=== PATIENT | female | born 1980 | race American Indian/Alaskan Native ===

== ENCOUNTER 2016-05-01 21:49 | Emergency (ER) | payer SELFPAY ==
[2016-05-02] MEDS ORDERED: NORCO 5/325 PO ONE (06:37)
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
[2016-05-02 06:49] LABS: Bilirubin,Urine NEG (Negative); Blood,Urine NEG (Negative); Ketones,Urine 20 mg/dL (Negative); Leukocyte Esterase,Urine NEG (Negative); Mucus,Urine 3+ /HPF; Nitrite,Urine NEG (Negative); Protein,Urine <15 mg/dL mg/dL (Negative)
[2016-05-02 06:55] LABS: Basophils % (Auto) 0.4 % (0.0-1.8); Eosinophils % (Auto) 1.6 % (0.0-4.3); Hematocrit 30.6 % (30.3-42.9); Hemoglobin 10.2 gm/dl (10.1-14.3); Mean Corpuscular HGB Conc 34 % (30-34); Mean Corpuscular Hemoglobin 32 pg (28-32); Mean Corpuscular Volume 96 fl (79-97); Platelet Count 187 K/mm3 (140-440); Red Blood Count 3.17 M/mm3 (3.65-5.03); Red Cell Distribution Width 13.6 % (13.2-15.2); White Blood Count 9.8 K/mm3 (4.5-11.0)
[2016-05-02 07:18] LABS: Alanine Aminotransferase 10 units/L (7-56); Albumin/Globulin Ratio 1.4 %; Alkaline Phosphatase 79 units/L (35-129); Anion Gap 19 mmol/L; Bilirubin,Total 0.4 mg/dL (0.1-1.2); Blood Urea Nitrogen 4 mg/dL (7-17); Calcium 8.5 mg/dL (8.4-10.2); Carbon Dioxide 20 mmol/L (22-30); Chloride 98.9 mmol/L (98-107); Glucose 91 mg/dL (65-100); Lipase 15 units/L (13-60); Potassium 3.3 mmol/L (3.6-5.0); Sodium 135 mmol/L (137-145); Total Protein 6.8 g/dL (6.3-8.2)
[2016-05-02 07:19] LABS: Bilirubin,Direct < 0.2 mg/dL (0-0.2)
[2016-05-02] MEDS ORDERED: K-DUR PO ONE (07:26)
[2016-05-02] MEDS ORDERED: TYLENOL PO ONE (07:26)
[2016-05-02 09:45] VITALS: BP 121/69
--- NOTE | 2016-05-02 10:27 | Ultrasound Report ---
OB ULTRASOUND: HISTORY: Abdominal pain during . TECHNIQUE: Transabdominal ultrasound with Doppler interrogation. Gestation: molina Position: breech Amniotic Fluid: WNL < 24 weeks, subjective Placenta: posterior Placental Grade: 0 Heart Rate: 134 BPM Cervical length: 3.8 cm (Normal > 3 cm) NEUROANATOMY VISUALIZED: Choroid Plexus Cisterna Magnum Cerebellum Lateral Ventricle ANATOMY VISUALIZED: Stomach Kidneys Bladder Diaphragm 4 Chamber Heart Heart 3 Vessel Cord Abd. Cord Insert SPINE VISUALIZED: Longitudinal BPD: 4.5 cm = 19 w 4 d HC: 16.9 cm = 19 w 4 d AC: 13.1 cm = 18 w 5 d FL: 3.1 cm = 19 w 5 d HC/AC Ratio: 1.29 Cephalic Index: 83.7 Estimated Weight: 278 grams LMP: 04-14-16 Clinical age = 2 w 4 d EDC: 01-19-17 US Gest. Age = 19 w 3 d EDC: 09-23-16
== END 2016-05-02 03:30 | disposition home or self-care (01) ==
LOC: ED 21:49
DX: O26.892 Other specified pregnancy related conditions, second trimester (principal); R10.30 Lower abdominal pain, unspecified; M54.5 Low back pain; F17.200 Nicotine dependence, unspecified, uncomplicated; Z3A.19 19 weeks gestation of pregnancy
CPT/HCPCS: 36415; 76805; 80048; 80074; 81001; 81025; 83690; 84702; 85025

== ENCOUNTER 2017-07-31 16:15 | Outpatient (CLI) | payer MEDICAID ==
[2017-07-31] MEDS ORDERED: CELESTONE SOLUSPAN IM ONE (18:00)
[2017-07-31] MEDS ORDERED: LACTATED RINGERS 1,000 ML IV ONE (18:00)
--- NOTE | 2017-08-02 15:10 | Vascular Lab Report ---
LOWER EXTREMITY VENOUS DUPLEX: REASON FOR EXAM: Deep venous thrombosis. COMMENTS ON THE RIGHT: All veins visualized are freely compressible without evidence of internal echogenicity. Flow is spontaneous and phasic throughout. COMMENTS ON THE LEFT: All veins visualized are freely compressible without evidence of internal echogenicity. Flow is spontaneous and phasic throughout. IMPRESSION: No evidence of acute or chronic deep venous thrombosis in either lower extremity.
[2017-08-07 21:13] VITALS: BP 125/86
== END 2017-07-31 18:39 | disposition home or self-care (01) ==
LOC: TRG 16:15
PROVIDERS: ATTEND Obstetrics & Gynecology
DX: O47.03 False labor before 37 completed weeks of gestation, third trimester (principal); O99.333 Smoking (tobacco) complicating pregnancy, third trimester; F17.210 Nicotine dependence, cigarettes, uncomplicated; Z3A.33 33 weeks gestation of pregnancy
CPT/HCPCS: 59025; 93970; 96372; J0702; J7120

== ENCOUNTER 2017-08-07 21:07 | Inpatient (IN) | payer MEDICAID ==
[2017-08-07] MEDS ORDERED: LACTATED RINGERS 500 ML IV ONE (21:28)
[2017-08-07] MEDS ORDERED: POLYCILLIN/NS 2 GM/100 ML 2 GM/100 ML BAG IV ONE (21:37)
[2017-08-07] MEDS ORDERED: PITOCin/NS 20 UNIT/1000ML DRIP 20,000 MILLIUNITS/1,000 ML BAG IV ONE (21:37)
[2017-08-07 21:44] LABS: Basophils # (Auto) 0.1 K/mm3 (0.0-0.1); Basophils % (Auto) 0.7 % (0.0-1.8); Eosinophils # (Auto) 0.1 K/mm3 (0.0-0.4); Eosinophils % (Auto) 0.6 % (0.0-4.3); Hematocrit 28.8 % (30.3-42.9); Hemoglobin 9.8 gm/dl (10.1-14.3); Lymphocytes % (Auto) 20.9 % (13.4-35.0); Mean Corpuscular HGB Conc 34 % (30-34); Mean Corpuscular Hemoglobin 33 pg (28-32); Mean Corpuscular Volume 95 fl (79-97); Monocytes # (Auto) 0.8 K/mm3 (0.0-0.8); Monocytes % (Auto) 7.9 % (0.0-7.3); Platelet Count 158 K/mm3 (140-440); Red Blood Count 3.03 M/mm3 (3.65-5.03); Red Cell Distribution Width 14.1 % (13.2-15.2)
[2017-08-07] MEDS ORDERED: LACTATED RINGERS 1,000 ML IV SCH (22:00)
[2017-08-07] MEDS ORDERED: POLYCILLIN/NS 2 GM/100 ML 2 GM/100 ML BAG IV SCH (22:00)
[2017-08-07] MEDS ORDERED: STADOL IV PRN (22:07)
[2017-08-07] MEDS ORDERED: MOTRIN PO ONE (23:44)
[2017-08-07] MEDS ORDERED: SODIUM CHLORIDE FLUSH SYRINGE 10 ML IV NR (23:45)
[2017-08-07] MEDS ORDERED: PERCOCET 5/325 PO PRN (23:57)
[2017-08-07] MEDS ORDERED: LANSINOH TP PRN (23:57)
[2017-08-07] MEDS ORDERED: PHENERGAN PR PRN (23:57)
[2017-08-07] MEDS ORDERED: ZOFRAN IV PRN (23:57)
[2017-08-07] MEDS ORDERED: DULCOLAX PR PRN (23:57)
[2017-08-07] MEDS ORDERED: TUCKS PAD TP PRN (23:57)
[2017-08-07] MEDS ORDERED: PHENERGAN PO PRN (23:57)
[2017-08-07] MEDS ORDERED: BENADRYL PO PRN (23:57)
[2017-08-07] MEDS ORDERED: TYLENOL PO PRN (23:57)
[2017-08-07] MEDS ORDERED: MILK OF MAGNESIA PO PRN (23:57)
--- NOTE | 2017-08-08 00:04 | History and Physical Report ---
History of Present Illness Date of examination: 08/07/17 Date of admission: 08/07/17 21:07 Chief complaint: 34 weeks gestation with fluid leakage and contractions. History of present illness: Patient is a 36 year old , LMP unknown, EDC 09/13/17 at 34 weeks and 2 days gestation who [id number] to triage complaining of having contractions and fluid leakage since about 7 PM tonight. She denied any bleeding. Exam: cervix: 5 cm/90%/-2. tracing was CAT 1. 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 ) Family/Genetic History: none Social history: smoking - Obstetrical History Expected Date of Delivery: 09/13/17 Actual Gestation: 34 Week(s) 6 Day(s) : 14 Para: 8 Hx # Term Pregnancies: 6 Number of Pregnancies: 2 Spontaneous Abortions: 4 Number of Living Children: 7 Medications and Allergies Allergies Allergy/AdvReac Type Severity Reaction Status Date / Time No Known Allergies Allergy Verified 11/01/13 18:30 Home Medications Medication Instructions Recorded Confirmed Last Taken Type No Known Home Medications [No 08/13/16 08/13/16 Unknown History Reported Home Medications] Active Meds: Active Medications Butorphanol Tartrate (Stadol) 2 mg IV Q2H PRN PRN Reason: Labor Pain Last Admin: 08/07/17 22:15 Dose: 2 mg Lactated Ringer's (Lactated Ringers) 1,000 mls @ 125 mls/hr IV DIRECT VIVIANE Ampicillin Sodium (Polycillin/Ns 2 Gm/100 Ml) 2 gm in 100 mls @ 100 mls/hr IV ONCE VIVIANE; Protocol - Vital Signs Vital signs: Vital Signs Temp Pulse Resp BP Pulse Ox 98.8 F 93 H 18 125/86 100 08/07/17 21:26 08/07/17 21:26 08/07/17 21:26 08/07/17 21:26 08/07/17 21:26 Temp Pulse Resp BP Pulse Ox 98.3 F 83 20 129/80 100 08/07/17 23:15 08/07/17 23:52 08/07/17 23:15 08/07/17 23:46 08/07/17 23:52 - Physical Exam Cardiovascular: Normal S1, Normal S2 Lungs: Positive: Clear to auscultation Vulva: both: normal Uterus: Positive: enlarged Deep Tendon Reflex Grade: Normal +2 - Obstetrical FHR: category 1 Uterine Contraction Monitor Mode: External Cervical Dilatation: 5 Cervical Effacement Percentage: 90 station: -2 Uterine Contraction Pattern: Irregular Uterine Contraction Intensity: Strong/Firm Results Result Diagrams: 08/07/17 21:27 Abnormal lab results 08/07/17 Range/Units 21:27 RBC 3.03 L (3.65-5.03) M/mm3 Hgb 9.8 L (10.1-14.3) gm/dl Hct 28.8 L (30.3-42.9) % MCH 33 H (28-32) pg [place] % (Auto) 7.9 H (0.0-7.3) % All other labs normal. Assessment and Plan - Patient Problems (1) 34 weeks gestation of Current Visit: Yes Status: Acute (2) premature rupture of membranes (PPROM) delivered, current hospitalization Current Visit: Yes Status: Acute Plan to address problem: Admit to labor floor. IV fluid, routine admitting labs. monitoring. IV antibiotics for GBS prophylaxis. NICU notified. Expect . (3) labor Current Visit: Yes Status: Acute (4) Advanced maternal age (AMA) in Current Visit: Yes Status: Acute (5) Anemia Current Visit: Yes Status: Acute Qualifiers: Anemia type: iron deficiency
--- NOTE | 2017-08-08 00:11 | Procedure Note ---
OB Delivery Note - Delivery Date of Delivery: 08/07/17 Surgeon: HEMA ZHANG Estimated blood loss: 100cc - Vaginal Delivery presentation: vertex Delivery position: OA Intrapartum events: foul smelling fluid, other(please specify) (PPROM) Delivery induction: none Delivery monitor: external FHT Route of delivery: Delivery placenta: spontaneous Delivery cord: 3 umbilical vessels Episiotomy: none Delivery laceration: none Anesthesia: none Delivery comments: Patient became fully dilated. She delivered via a live female infant from an KATRINA position at 10:52 PM with Apgars of 8 at 1 min and 9 at 5 mins. Bulb suction of mouth and nose was performed, cord clamped and cut, cord blood collected. Peds were present. The amniotic fluid was foul-smelling. The placenta was delivered manually and it was complete with a 3-vessel cord at 10: 56 PM. No laceration was sustained, no episiotomy was given. EBL was about 150 cc. Patient tolerated the procedure well. She remains stable.
[2017-08-08] MEDS: MOTRIN PO SCH ×4 (00:45→23:40)
[2017-08-08] MEDS ORDERED: PITOCin/NS 20 UNIT/1000ML DRIP 20 UNITS/1,000 ML BAG IV SCH (03:00)
--- NOTE | 2017-08-08 10:20 | Progress Note ---
Assessment and Plan A: PPD#1 s/p in NICU (34 wks) Stable P: Routine PP care Discharge home 08/09 Subjective - Subjective Date of service: 08/08/17 Principal diagnosis: S/P Interval history: See H&P and delivery note Patient reports: appetite normal, voiding normally, pain well controlled, ambulating normally : doing well, bottle feeding Objective - Vital Signs Latest vital signs: Vital Signs Temp Pulse Resp BP BP Pulse Ox 08/08/17 08:25 98.4 F 78 18 118/81 100 08/08/17 05:17 98.2 F 79 20 119/70 97 08/08/17 00:36 98.3 F 74 20 129/87 96 08/07/17 23:58 98.6 F 80 20 129/80 100 08/07/17 23:52 83 100 08/07/17 23:47 76 99 08/07/17 23:46 81 129/80 08/07/17 23:42 74 99 08/07/17 23:41 76 129/81 08/07/17 23:37 94 H 98 08/07/17 23:32 85 99 08/07/17 23:31 77 132/85 08/07/17 23:27 83 100 08/07/17 23:22 76 100 08/07/17 23:17 87 98 08/07/17 23:16 88 142/95 92 08/07/17 23:15 98.3 F 77 20 142/95 08/07/17 23:12 81 98 08/07/17 23:07 89 99 08/07/17 23:02 88 99 08/07/17 23:01 86 129/88 08/07/17 22:57 92 H 97 08/07/17 22:52 101 H 99 08/07/17 22:47 102 H 97 08/07/17 21:26 98.8 F 93 H 18 125/86 100 Intake and Output 08/07/17 08/08/17 08/08/17 23:59 07:59 15:59 Intake Total 120 Output Total 400 Balance -280 Intake: Oral 120 Output: Urine 400 Void 400 Other: Total, Intake Amount 120 Total, Output Amount 400 # Voids Void 1 Weight 79.379 kg Estimated Blood Loss 150 - Exam Breasts: Present: normal Cardiovascular: Present: Regular rate, Normal S1, Normal S2 Lungs: Present: Clear to auscultation, Normal air movement Abdomen: Present: normal appearance, soft, normal bowel sounds. Absent: distention Vulva: both: normal Uterus: Present: firm, fundal height at umbilicus Extremities: Present: normal Deep Tendon Reflex Grade: Normal +2 - Labs Labs: Abnormal lab results 08/07/17 Range/Units 21:27 RBC 3.03 L (3.65-5.03) M/mm3 Hgb 9.8 L (10.1-14.3) gm/dl Hct 28.8 L (30.3-42.9) % MCH 33 H (28-32) pg [place] % (Auto) 7.9 H (0.0-7.3) %
--- NOTE | 2017-08-08 10:22 | Discharge Summary ---
Providers - Providers Date of Admission: 08/07/17 21:07 Date of discharge: 08/09/17 Attending physician: HEMA ZAHNG MD Primary care physician: HEMA ZHANG MD Hospitalization Reason for admission: active labor, labor (34 weeks) Delivery: Procedure details: See delivery note Episiotomy: none Laceration: none Other procedures: none complications: none Discharge diagnosis: delivery baby: female Condition at discharge: Good Disposition: DC-01 TO HOME OR SELFCARE Plan - Provider Discharge Summary Activity: routine, no sex for 6 weeks, no heavy lifting 4 weeks, no strenuous exercise Diet: routine Instructions: routine Additional instructions: [] Smoking cessation referral if applicable(refer to patient education folder for contact #) [] Refer to [facility] Booklet Call your doctor immediately for: * Fever > 100.5 * Heavy vaginal bleeding ( >1 pad per hour) * Severe persistent headache * Shortness of breath * Reddened, hot, painful area to leg or breast * Drainage or odor from incision. * Keep incision clean and dry at all times and follow doctor's instructions regarding bathing/showering - Follow up plan Follow up: HEMA ZHANG MD [Primary Care Provider] - 6 Weeks
[2017-08-08 12:38] LABS: Hematocrit 27.2 % (30.3-42.9); Hemoglobin 9.5 gm/dl (10.1-14.3)
[2017-08-09] MEDS: MOTRIN PO SCH (03:18)
[2017-08-09 09:00] VITALS: BP 119/80
== END 2017-08-09 11:30 | disposition home or self-care (01) | DRG 775 ==
LOC: LD 21:07 → OB 08-08 00:34
PROVIDERS: ADMIT Obstetrics & Gynecology; ATTEND Obstetrics & Gynecology
PROC: 10E0XZZ Delivery of Products of Conception, External Approach (ICD-10-PCS; principal; 2017-08-07)
DX: O60.14X0 Preterm labor third trimester with preterm delivery third trimester, not applicable or unspecified (principal); O99.334 Smoking (tobacco) complicating childbirth; F17.200 Nicotine dependence, unspecified, uncomplicated; O99.02 Anemia complicating childbirth; D64.9 Anemia, unspecified; Z3A.34 34 weeks gestation of pregnancy; Z37.0 Single live birth; Z90.49 Acquired absence of other specified parts of digestive tract; Z90.721 Acquired absence of ovaries, unilateral
CPT/HCPCS: 36415; 85014; 85018; 85025; 86592; 86850; 86900; 86901; 88307; 99211; G0463; J0290; J0595; J2590; J7120

== ENCOUNTER 2018-06-07 17:54 | Emergency (ER) | payer MEDICAID, OTHER ==
--- NOTE | 2018-06-07 18:19 | Emergency Department Report ---
Blank Doc - Documentation Documentation: This is a 37-year-old female that presents with URI symptoms. This initial assessment/diagnostic orders/clinical plan/treatment(s) is/are subject to change based on patient's health status, clinical progression and re- assessment by fellow clinical providers in the ED. Further treatment and workup at subsequent clinical providers discretion. Patient/guardians urged not to elope from the ED as their condition may be serious if not clinically assessed and managed. Initial orders include: 1- Patient sent to [facility] for further evaluation and treatment 2- cxr
[2018-06-07 18:21] VITALS: BP 151/86
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
== END 2018-06-07 20:50 | disposition home or self-care (01) ==
LOC: ED 17:54
DX: J02.9 Acute pharyngitis, unspecified (principal); R05 Cough; R09.81 Nasal congestion; J34.89 Other specified disorders of nose and nasal sinuses; F17.200 Nicotine dependence, unspecified, uncomplicated
CPT/HCPCS: 99282

== ENCOUNTER 2019-05-24 09:51 | Emergency (ER) | payer SELFPAY ==
[2019-05-24 10:16] VITALS: BP 115/67
[2019-05-24] MEDS ORDERED: ONDANSETRON 4 MG ODT TAB PO ONE (11:20)
[2019-05-24] MEDS ORDERED: FAMOTIDINE 20 MG TAB PO ONE (11:20)
[2019-05-24 12:58] LABS: HCG Qualitative,Urine Positive (Negative)
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
== END 2019-05-24 13:35 | disposition home or self-care (01) ==
LOC: ED 09:51
DX: O21.9 Vomiting of pregnancy, unspecified (principal); O26.891 Other specified pregnancy related conditions, first trimester; R10.84 Generalized abdominal pain; F17.200 Nicotine dependence, unspecified, uncomplicated; Z79.899 Other long term (current) drug therapy; Z3A.00 Weeks of gestation of pregnancy not specified
CPT/HCPCS: 81025; 99283; Q0162

== ENCOUNTER 2019-06-05 21:36 | Emergency (ER) | payer SELFPAY ==
[2019-06-05 22:35] VITALS: BP 106/70
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
[2019-06-06 02:04] LABS: Basophils # (Auto) 0.1 K/mm3 (0.0-0.1); Basophils % (Auto) 0.9 % (0.0-1.8); Eosinophils # (Auto) 0.1 K/mm3 (0.0-0.4); Eosinophils % (Auto) 1.6 % (0.0-4.3); Hematocrit 32.3 % (30.3-42.9); Hemoglobin 10.7 gm/dl (10.1-14.3); Lymphocytes # (Auto) 2.6 K/mm3 (1.2-5.4); Lymphocytes % (Auto) 39.7 % (13.4-35.0); Mean Corpuscular HGB Conc 33 % (30-34); Mean Corpuscular Volume 94 fl (79-97); Monocytes # (Auto) 0.4 K/mm3 (0.0-0.8); Monocytes % (Auto) 6.2 % (0.0-7.3); Platelet Count 166 K/mm3 (140-440); Red Blood Count 3.45 M/mm3 (3.65-5.03); Red Cell Distribution Width 17.1 % (13.2-15.2)
[2019-06-06 02:48] LABS: BUN/Creatinine Ratio 15; Blood Urea Nitrogen 9 mg/dL (7-17); Calcium 9.1 mg/dL (8.4-10.2); Hemolysis Index 2
--- NOTE | 2019-06-06 04:10 | Ultrasound Report ---
ULTRASOUND OBSTETRIC INDICATION / CLINICAL INFORMATION: preg, bleeding, abd pain, hx of ectopic. TECHNIQUE: Transabdominal. COMPARISON: None available. FINDINGS: EMBRYO/FETUS: No significant abnormality. - [place]-Rump Length = 5.2 cm = 11 weeks, 6 day(s). Small subchorionic bleed is present - Heart Rate, beats per minute (if present) = 155 ADNEXA: Right ovary cannot be identified. Left ovary appears normal. FREE FLUID: None. ADDITIONAL FINDINGS: None. IMPRESSION: 1. Single, living intrauterine with estimated sonographic age of 11 weeks, 6 day(s). 2. Small subchorionic bleed Signer Name: Helio Jiang MD Signed: 06/06/2019 4:06 AM Workstation Name: [id number]
== END 2019-06-06 04:50 | disposition home or self-care (01) ==
LOC: ED 21:36
DX: O20.0 Threatened abortion (principal); Z3A.12 12 weeks gestation of pregnancy
CPT/HCPCS: 36415; 76801; 80048; 84702; 85025; 86900; 86901; 99284

== ENCOUNTER 2019-08-15 12:42 | Emergency (ER) | payer MEDICAID ==
[2019-08-15 13:06] VITALS: BP 127/78
== END 2019-08-15 14:25 | disposition left against medical advice (07) ==
LOC: ED 12:42
DX: K64.9 Unspecified hemorrhoids (principal); Z53.21 Procedure and treatment not carried out due to patient leaving prior to being seen by health care provider

== ENCOUNTER 2019-11-13 22:36 | Emergency (ER) | payer MEDICAID ==
[2019-11-13 23:10] VITALS: BP 110/72
[2019-11-13] MEDS ORDERED: LACTATED RINGERS 1,000 ML IV ONE (23:14)
[2019-11-13] MEDS ORDERED: HYDROCORTISONE 2.5% RECT CREAM 28.35 GM PR ONE (23:21)
[2019-11-13] MEDS ORDERED: DIPHENOXYLATE/ATROPINE TAB PO ONE (23:24)
[2019-11-14] MEDS ORDERED: ACETAMINOPHEN 325 MG TAB ONE (01:43)
[2019-11-14] MEDS ORDERED: ACETAMINOPHEN 325 MG TAB PO ONE (01:45)
--- NOTE | 2019-11-14 01:48 | Ultrasound Report ---
Examination: Ultrasound Obstetrical Limited, 11/14/2019 INDICATION: Evaluate for placental abruption. COMPARISON: Obstetrical ultrasound, 06/06/2019 FINDINGS: There is a single living intrauterine with the head in the cephalic position. The placenta is anterior and grade 1. No sonographic abnormality of the placenta is identified. heart rate equals 148 bpm. IMPRESSION: Limited obstetrical ultrasound with details as above. Signer Name: Gavi Cotton MD Signed: 11/14/2019 1:43 AM Workstation Name: [id number]
== END 2019-11-14 01:55 | disposition left against medical advice (07) ==
LOC: TRG 22:36 → ED 22:36 → TRG 22:37 → APU 11-14 00:14 → TRG 11-14 01:21 → APU 11-14 01:21 → ED 11-14 01:37
DX: O26.893 Other specified pregnancy related conditions, third trimester (principal); R19.7 Diarrhea, unspecified; Z3A.32 32 weeks gestation of pregnancy; Z53.21 Procedure and treatment not carried out due to patient leaving prior to being seen by health care provider
CPT/HCPCS: 59025; 76815; 96360; J7120

== ENCOUNTER 2019-11-24 00:06 | Outpatient (CLI) | payer MEDICAID ==
[2019-11-24] MEDS ORDERED: BETAMET ACET/BETAMET NA PH 6 MG/ML INJ 5 ML MDV IM ONE (00:47)
== END 2019-11-24 00:46 | disposition home or self-care (01) ==
LOC: TRG 00:06 → APU 00:07 → TRG 00:46
PROVIDERS: ATTEND Obstetrics & Gynecology
DX: O47.03 False labor before 37 completed weeks of gestation, third trimester (principal); O42.913 Preterm premature rupture of membranes, unspecified as to length of time between rupture and onset of labor, third trimester; O99.013 Anemia complicating pregnancy, third trimester; O09.523 Supervision of elderly multigravida, third trimester; Z3A.36 36 weeks gestation of pregnancy
CPT/HCPCS: 96372; J0702

== ENCOUNTER 2019-11-29 11:15 | Inpatient (IN) | payer MEDICAID ==
[2019-11-29] MEDS ORDERED: LACTATED RINGERS 1,000 ML ONE (11:45)
[2019-11-29] MEDS ORDERED: ONDANSETRON 4 MG/2 ML INJ IV PRN (12:05)
[2019-11-29] MEDS ORDERED: TERBUTALINE 1 MG/1 ML INJ SUB-Q PRN (12:05)
[2019-11-29] MEDS ORDERED: ePHEDrine SULFATE 50 MG/1 ML INJ IV PRN ×2 (12:05→12:07)
[2019-11-29] MEDS ORDERED: MINERAL OIL 30 ML ORAL LIQD PO PRN (12:05)
[2019-11-29] MEDS ORDERED: ACETAMINOPHEN 325 MG TAB PO PRN (12:05)
[2019-11-29] MEDS ORDERED: LIDOCAINE (2%) 20 MG/1 ML VIAL 20 ML MDV INFILTRATI ONE (12:05)
[2019-11-29] MEDS ORDERED: NALOXONE 2 MG/2 ML INJ IV PRN (12:07)
--- NOTE | 2019-11-29 12:09 | Anesthesia Consultation ---
Anesthesia Consult and Med Hx Date of service: 11/29/19 - Airway Anesthetic Teeth Evaluation: Good ROM Head & Neck: Adequate Mental/Hyoid Distance: Adequate Mallampati Class: Class II Intubation Access Assessment: Probably Good - Pulmonary Exam CTA: Yes - Cardiac Exam Cardiac Exam: RRR - Pre-Operative Health Status ASA Pre-Surgery Classification: ASA2 Proposed Anesthetic Plan: Epidural - Pulmonary Hx Smoking: Yes (4-5 cigs a day x 17 years) Hx Asthma: No COPD: No Hx Pneumonia: No - Cardiovascular System Hx Hypertension: No - Central Nervous System Hx Seizures: No Hx Psychiatric Problems: No - Endocrine Hx Renal Disease: No Hx End Stage Renal Disease: No Hx Hypothyroidism: No Hx Hyperthyroidism: No - Hematic Hx Anemia: Yes Hx Sickle Cell Disease: No - Other Systems Hx Alcohol Use: Yes Hx Substance Use: Yes (Marakarina Last use 06/25) Hx Cancer: No
[2019-11-29] MEDS ORDERED: DEXMEDETOMIDINE 200 MCG/2 ML VIAL IV ONE (12:14)
[2019-11-29 12:22] LABS: Hematocrit 28.7 % (30.3-42.9); Hemoglobin 9.7 gm/dl (10.1-14.3); Mean Corpuscular HGB Conc 34 % (30-34); Mean Corpuscular Volume 96 fl (79-97); Platelet Count 187 K/mm3 (140-440); Red Blood Count 2.98 M/mm3 (3.65-5.03); Red Cell Distribution Width 14.5 % (13.2-15.2)
--- NOTE | 2019-11-29 12:40 | Progress Note ---
Labor Epidural - Labor Epidural Start Time: 12:30 Stop Time: 12:35 Performed by:: PARIS FRANCO Procedure: Patient is requesting epidural for labor pain. H&P, and labs reviewed. Procedure explained, questions answered, consent obtained. Patient in sitting position with blood pressure cuff and pulse ox on and working. Timeout performed immediately before start of procedure. Sterile betadine prep/drape. 3 mL 1% lidocaine skin wheal at L[3]-L[4]. 18-gauge Touhy epidural needle advanced to paresthesia down left leg. Patient wishes to abort procedure, tuohy removed, paresthesia resolving. Day SRNA
[2019-11-29] MEDS ORDERED: OXYTOCIN 20 UNIT/1000ML DRIP 20 UNITS/1,000 ML BAG IV SCH (13:00)
[2019-11-29] MEDS ORDERED: AMPICILLIN/NS 2 GM/100 ML 2 GM/100 ML BAG IV ONE (13:00)
[2019-11-29] MEDS ORDERED: fentaNYL-BUPIV 2 MCG/ML-0.125% 200 MCG/100 ML BAG EPIDURAL SCH (13:00)
--- NOTE | 2019-11-29 13:01 | History and Physical Report ---
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 Her has been complicated by AMA, hx of PTD x 2, anemia, genital herpes, late entry to [facility], smoker, Trichomonas and Vit D deficiency. She presents to [facility] with reports of painful ctxs and was found to be 5 cms dilated. She denies VB or LOF. Labs: O+, antibody negative; rubella immune; VDRL negative; HBsAg negative; HIV ne gative; GC/Chlamydia negative;Trich positive (SILVA negative 08/22/19); CF negative; 1 hr gtt - 78; GBS unknown. 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 Family/Genetic History: hypertension, cancer (stomach) - Obstetrical History Expected Date of Delivery: 12/20/19 Actual Gestation: 37 Week(s) 0 Day(s) : 13 Para: 8 Hx # Term Pregnancies: 6 Number of Pregnancies: 2 Spontaneous Abortions: 4 Induced : 0 Number of Living Children: 8 Medications and Allergies Allergies Allergy/AdvReac Type Severity Reaction Status Date / Time No Known Allergies Allergy Verified 08/15/19 13:02 Home Medications Medication Instructions Recorded Confirmed Last Taken Type Albuterol Mdi (or & Nicu Only) 1 puff IH Q4-6H PRN #1 inha 06/07/18 Unknown Rx [ProAir HFA Inhaler] Azithromycin [Zithromax] 500 mg PO QDAY #5 tablet 06/07/18 Unknown Rx guaiFENesin/CODEINE [Robitussin AC] 5 ml PO Q6H PRN #120 ml 06/07/18 Unknown Rx predniSONE [Deltasone] 20 mg PO QDAY #5 tab 06/07/18 Unknown Rx Dicyclomine [Bentyl] 20 mg PO QID #10 tablet 05/24/19 Unknown Rx Vit-Fe Fumar-FA [ 1 tab PO QDAY #30 tablet 06/06/19 Unknown Rx Vitamin] Active Meds: Active Medications Acetaminophen (Tylenol) 650 mg PO Q4H PRN PRN Reason: Pain, Mild (1-3) Butorphanol Tartrate (Stadol) 2 mg IV Q2H PRN PRN Reason: Pain , Severe (7-10) Ephedrine Sulfate (Ephedrine Sulfate) 10 mg IV Q2M PRN PRN Reason: Hypotension Ephedrine Sulfate (Ephedrine Sulfate) 10 mg IV Q2M PRN PRN Reason: Hypotension Fentanyl (Sublimaze) 100 mcg IV Q2H PRN PRN Reason: Pain,Severe (7-10) LABOR PAIN Fentanyl/Bupivacaine/Sodium Chlor (Fentanyl-Bupiv 2 Mcg/Ml-0.125%) 200 mcg in 100 mls @ 12 mls/hr EPIDURAL TITR VIVIANE; Protocol Lactated Ringer's (Lactated Ringers) 1,000 mls @ 125 mls/hr IV DIRECT VIVIANE Oxytocin/Sodium Chloride (Pitocin/Ns 20 Unit/1000ml Drip) 20 units in 1,000 mls @ 125 mls/hr IV DIRECT VIVIANE Ampicillin Sodium (Ampicillin/Ns 2 Gm/100 Ml) 2 gm in 100 mls @ 100 mls/hr IV ONCE ONE; Protocol Stop: 11/29/19 13:04 Ampicillin Sodium (Ampicillin/Ns 1 Gm/50 Ml) 1 gm in 50 mls @ 100 mls/hr IV Q4HR VIVIANE; Protocol Lidocaine (Xylocaine 2%) 20 ml INFILTRATI ONCE ONE Stop: 11/29/19 12:06 Mineral Oil (Mineral Oil) 30 ml PO QHS PRN PRN Reason: Constipation Naloxone HCl (Naloxone) 0.2 mg IV Q5M PRN PRN Reason: Respiratory sedation Ondansetron HCl (Zofran) 4 mg IV Q8H PRN PRN Reason: Nausea And Vomiting Terbutaline Sulfate (Brethine) 0.25 mg SUB-Q ONCE PRN PRN Reason: Hyperstimulation/Hypertonicity Review of Systems All systems: negative Genitourinary: contractions - Vital Signs Vital signs: Vital Signs Pulse BP 82 135/74 11/29/19 11:44 11/29/19 11:44 Temp Pulse Resp BP Pulse Ox 97.5 F L 79 20 129/72 99 11/29/19 11:48 11/29/19 12:50 11/29/19 11:48 11/29/19 12:35 11/29/19 12:50 - Physical Exam Breasts: Positive: normal Cardiovascular: Regular rate Lungs: Positive: Normal air movement Abdomen: Positive: other (gravid) Uterus: Positive: enlarged (S=D) - Obstetrical FHR: category 1 Uterine Contraction Monitor Mode: External Cervical Dilatation: 5 (per RN) Cervical Effacement Percentage: 80 station: -2 Uterine Contraction Frequency (min): 5-10 Uterine Contraction Pattern: Irregular Uterine Tone Measurement Phase: Resting Uterine Contraction Intensity: Moderate Results Result Diagrams: 11/29/19 12:06 Abnormal lab results 11/29/19 Range/Units 12:06 RBC 2.98 L (3.65-5.03) M/mm3 Hgb 9.7 L (10.1-14.3) gm/dl Hct 28.7 L (30.3-42.9) % MCH 33 H (28-32) pg All other labs normal. Assessment and Plan - Patient Problems (1) 37 weeks gestation of Current Visit: Yes Status: Acute Plan to address problem: Admit to L & D Epidural as desired Anticipate (2) Advanced maternal age (AMA) in Current Visit: No Status: Acute (3) Anemia Current Visit: No Status: Acute Qualifiers: Anemia type: iron deficiency Plan to address problem: Continue iron supplementation PP (4) HSV-2 seropositive Current Visit: Yes Status: Acute (5) Smoker Current Visit: Yes Status: Acute
[2019-11-29] MEDS: BUTORPHANOL 2 MG/1 ML INJ IV PRN (13:02)
[2019-11-29] MEDS: fentaNYL 100 MCG/2 ML INJ IV PRN (16:36)
[2019-11-29] MEDS: AMPICILLIN/NS 1 GM/50 ML 1 GM/50 ML BAG IV SCH ×2 (18:06→21:48)
[2019-11-29] MEDS ORDERED: TERBUTALINE 1 MG/1 ML INJ SUB-Q ONE (21:28)
--- NOTE | 2019-11-29 21:36 | Event Note ---
Date: 11/29/19 SVE 50/-2/posterior. Small pink scar noted on vulva; pt. states most probably from previous delivery. No lesions noted on careful exam with bright light upon admission. Pt. has a history of +HSV 2 serology. She states she was supposed to be taking Valtrex suppression but has not been compliant with her medication and has missed most of the doses over the past 2 weeks. Valtrex ordered for suppression. Advised patient re: importance of taking this for HSV suppression. Will observe patient overnight to rule out labor. Contractions have been i rregular and mild. Patient is grand multip.
[2019-11-29] MEDS: valACYclovir 500 MG TAB PO SCH (22:50)
[2019-11-30] MEDS: LACTATED RINGERS 1,000 ML IV SCH ×2 (02:00→18:50)
[2019-11-30] MEDS: AMPICILLIN/NS 1 GM/50 ML 1 GM/50 ML BAG IV SCH ×6 (02:00→21:13)
[2019-11-30 04:05] LABS: Alanine Aminotransferase 10 units/L (7-56); Albumin 2.8 g/dL (3.9-5); Blood Urea Nitrogen 5 mg/dL (7-17); Calcium 7.9 mg/dL (8.4-10.2); Hemolysis Index 1; Uric Acid 5.8 mg/dL (3.5-7.6)
[2019-11-30 04:15] LABS: BUN/Creatinine Ratio 8
[2019-11-30] MEDS: fentaNYL 100 MCG/2 ML INJ IV PRN (04:54)
[2019-11-30] MEDS: valACYclovir 500 MG TAB PO SCH ×2 (09:15→21:12)
--- NOTE | 2019-11-30 09:16 | Progress Note ---
Assessment and Plan A: at 37 weeks, 1 day gestation. Early labor. HSV 2 positive serology (no lesions or prodromal symptoms). GBS unknown. Grand multipara. P: Patient to walk; recheck cervix after ambulation. Continue HSV suppression with Valtrex. GBS prophylaxis. Subjective - Subjective Date of service: 11/30/19 Principal diagnosis: at 37 1/7 weeks gestation Interval history: Patient has been receiving Valtrex for HSV suppression. Patient denies prodromal symptoms. No lesion noted on careful exam. Patient reports contractions are becoming stronger and more regular. Patient reports: movement normal, contractions, no loss of fluid, no vaginal bleeding Objective - Vital Signs Vital Signs: Vital Signs - 12hr 11/29/19 11/30/19 11/30/19 21:50 04:57 05:57 Pulse Rate 73 81 85 Blood Pressure 117/74 126/74 132/63 11/30/19 11/30/19 11/30/19 06:57 07:57 08:57 Pulse Rate 78 73 77 Blood Pressure 125/68 120/67 118/79 - Exam Abdomen: Present: normal appearance, soft. Absent: distention, tenderness, guarding, rigidity Uterus: Present: fundal height above umbilicus. Absent: tenderness FHR: category 2 Uterine Contraction Monitor Mode: External Cervical Dilatation: 5 Cervical Effacement Percentage: 50 station: -2 Uterine Contraction Pattern: Irregular Uterine Contraction Intensity: Mild Extremities: normal - Labs Labs: Abnormal Labs 11/29/19 11/30/19 12:06 02:53 RBC 2.98 L Hgb 9.7 L Hct 28.7 L MCH 33 H Sodium 135 L Potassium 3.4 L Carbon Dioxide 20 L BUN 5 L Calcium 7.9 L Alkaline Phosphatase 230 H Lactate Dehydrogenase 191 H Total Protein 4.8 L Albumin 2.8 L Laboratory Results - last 24 hr 11/29/19 11/29/19 11/30/19 12:05 12:06 02:53 WBC 8.5 RBC 2.98 L Hgb 9.7 L Hct 28.7 L MCV 96 MCH 33 H MCHC 34 RDW 14.5 Plt Count 187 Sodium 135 L Potassium 3.4 L Chloride 102.4 Carbon Dioxide 20 L Anion Gap 16 BUN 5 L Creatinine 0.6 Estimated GFR > 60 BUN/Creatinine Ratio 8 Glucose 77 Uric Acid 5.8 Calcium 7.9 L Total Bilirubin 0.40 AST 15 ALT 10 Alkaline Phosphatase 230 H Lactate Dehydrogenase 191 H Total Protein 4.8 L Albumin 2.8 L Albumin/Globulin Ratio 1.5 Blood Type O POSITIVE Antibody Screen Negative
[2019-11-30] MEDS ORDERED: WITCH HAZEL/ GLYCERIN PAD TP PRN (13:52)
[2019-11-30 14:00] LABS: Bilirubin,Urine NEG (Negative); Blood,Urine SM (Negative); Color,Urine Yellow (Yellow); Hyaline Casts,Urine 6 /LPF; Mucus,Urine FEW /HPF; Protein,Urine <15 mg/dL mg/dL (Negative)
[2019-11-30] MEDS: BUTORPHANOL 2 MG/1 ML INJ IV PRN (14:05)
[2019-11-30 14:07] LABS: Amphetamine Screen,Urine PRESUMPTIVE NEGATIVE; Benzodiazepines Screen,Urine PRESUMPTIVE NEGATIVE; Cannabinoid Screen,Urine PRESUMPTIVE POSITIVE; Cocaine Screen,Urine PRESUMPTIVE NEGATIVE; Methadone Screen,Urine PRESUMPTIVE NEGATIVE; Opiate Screen,Urine PRESUMPTIVE NEGATIVE
[2019-11-30] MEDS ORDERED: OXYTOCIN DRIP 30 UNITS/500 ML BAG IV SCH (21:00)
--- NOTE | 2019-11-30 21:06 | Event Note ---
Date: 11/30/19 SVE /-1/BBOW. Will augment labor.
[2019-12-01] MEDS ORDERED: DEXMEDETOMIDINE 200 MCG/2 ML VIAL IV ONE (01:02)
[2019-12-01] MEDS ORDERED: miSOPROStol 200 MCG TAB PR ONE (01:05)
[2019-12-01] MEDS ORDERED: miSOPROStol 200 MCG TAB ONE (01:06)
[2019-12-01] MEDS: fentaNYL 100 MCG/2 ML INJ IV PRN (01:18)
[2019-12-01] MEDS ORDERED: diphenhydrAMINE 25 MG CAP PO PRN (01:22)
[2019-12-01] MEDS ORDERED: LANOLIN/ZINC/DIMETHICONE (LANSINOH) 7 GM TP PRN (01:22)
[2019-12-01] MEDS ORDERED: MAGNESIUM HYDROXIDE (MOM) ORAL LIQD UDC PO PRN (01:22)
[2019-12-01] MEDS ORDERED: WITCH HAZEL/ GLYCERIN PAD TP PRN (01:22)
--- NOTE | 2019-12-01 01:33 | Procedure Note ---
OB Delivery Note - Delivery Date of Delivery: 12/01/19 Surgeon: ELTON BERNARDO Estimated blood loss: 500cc - Vaginal Delivery presentation: vertex Delivery position: OA Intrapartum events: hemorrhage Delivery induction: none Delivery augmentation: rupture of membranes, pitocin Delivery monitor: external uterine, internal FHT Route of delivery: Delivery placenta: spontaneous Delivery cord: nuchal cord, 3 umbilical vessels Episiotomy: none Delivery laceration: none Anesthesia: none Delivery comments: Spontaneous vaginal delivery at 01:01 of liveborn male infant weighing 6 lb. 4.4 oz. over intact perineum with apgars of 8/9. Nuchal cord times 1, manually reduced; short cord. Baby placed skin to skin with mom immediately after ; spontaneous cry and respirations. 3 vessel cord double clamped and cut. Cord blood obtained. Spontaneous delivery of intact placenta and membranes by duque mechanism. EBL 500 cc. Pitocin to IV fluids after delivery of placenta. Cytotec 800 mcg given rectally. Fundus firm and midline. No lacerations noted. Vaginal sweep negative. Sponge count correct. IV fluid bolus given and stat H&H ordered.
[2019-12-01 03:26] LABS: Hematocrit 26.9 % (30.3-42.9)
[2019-12-01] MEDS: HYDROcodone/ACETAMINOPHEN 5-325 MG TAB PO PRN ×3 (04:14→22:13)
[2019-12-01] MEDS: IBUPROFEN 600 MG TAB PO SCH ×3 (06:37→18:01)
[2019-12-01] MEDS ORDERED: BENZOCAINE/MENTHOL 20/0.5% TOP SPRAY 56 GM TP PRN (09:16)
[2019-12-01] MEDS ORDERED: cefTRIAXone/NS 1 GM/50 ML 1 GM/50 ML BAG IV SCH (10:00)
[2019-12-01] MEDS: FERROUS SULFATE 325 MG TAB PO SCH ×2 (10:21→22:13)
[2019-12-01] MEDS: DOCUSATE SODIUM 100 MG CAP PO SCH ×2 (10:21→22:13)
[2019-12-01 15:48] LABS: Basophils % (Auto) 0.5 % (0.0-1.8); Eosinophils # (Auto) 0.1 K/mm3 (0.0-0.4); Eosinophils % (Auto) 0.8 % (0.0-4.3); Hematocrit 26.9 % (30.3-42.9); Hemoglobin 8.9 gm/dl (10.1-14.3); Lymphocytes % (Auto) 23.9 % (13.4-35.0); Mean Corpuscular HGB Conc 33 % (30-34); Mean Corpuscular Volume 97 fl (79-97); Monocytes # (Auto) 0.8 K/mm3 (0.0-0.8); Platelet Count 155 K/mm3 (140-440); Red Blood Count 2.76 M/mm3 (3.65-5.03); Red Cell Distribution Width 14.5 % (13.2-15.2)
[2019-12-01 15:51] LABS: Alanine Aminotransferase 16 units/L (7-56); Albumin 3.1 g/dL (3.9-5); Blood Urea Nitrogen 5 mg/dL (7-17); Calcium 8.6 mg/dL (8.4-10.2); Hemolysis Index 7; Uric Acid 4.9 mg/dL (3.5-7.6)
[2019-12-01 15:53] LABS: BUN/Creatinine Ratio 7
--- NOTE | 2019-12-01 16:37 | Event Note ---
Date: 12/01/19 On iron supplementation for anemia. Hemoglobin stable (8.9/26.9). Pt. reports lochia is small in amount. Patient denies headache, visual disturbance, nausea or vomiting, or edema. BPs stable 130s/50s-80s. Platelet count 155,000. AST/ALT: 33/16. Alk phos 242, LDH 310. Discussed lab results and BPs with Dr. Delatorre. No new orders by Dr. Delatorre. Will monitor BPs. Informed patient's nurse of all of the above and also discussed all of the above with patient.
[2019-12-02] MEDS: IBUPROFEN 600 MG TAB PO SCH ×2 (00:11→06:19)
--- NOTE | 2019-12-02 11:36 | Progress Note ---
Assessment and Plan A: PP Day #1 Asymptomatic Anemia P: Follow Routine Orders Continue PO FeSO4 Depo Provera 150mg IM x 1 Dose prior to discharge D/C Home today per patient request RTO in 6 Weeks Subjective - Subjective Date of service: 12/02/19 Principal diagnosis: at 37 1/7 weeks gestation Patient reports: appetite normal, voiding normally, pain well controlled, flatus, bowel movement, ambulating normally : doing well, bottle feeding Objective - Vital Signs Latest vital signs: Vital Signs Temp Pulse Resp BP BP Pulse Ox 12/02/19 08:00 97.9 F 60 20 135/80 12/02/19 00:39 98.0 F 68 18 128/68 99 12/01/19 16:47 98.4 F 69 18 129/79 100 12/01/19 12:46 97.9 F 65 18 134/80 97 Intake and Output 12/01/19 12/02/19 12/02/19 22:59 06:59 14:59 Intake Total 360 240 360 Balance 360 240 360 Intake: Oral 360 Intake, Free Water 360 240 Other: Total, Intake Amount 120 # Voids Void 1 1 1 - Exam Breasts: Present: normal Cardiovascular: Present: Regular rate Lungs: Present: Clear to auscultation, Normal air movement Abdomen: Present: normal appearance, soft, normal bowel sounds Uterus: Present: normal, firm, fundal height below umbilicus Extremities: Present: normal - Labs Labs: Abnormal lab results 12/01/19 12/01/19 Range/Units 14:58 14:58 RBC 2.76 L (3.65-5.03) M/mm3 Hgb 8.9 L (10.1-14.3) gm/dl Hct 26.9 L (30.3-42.9) % [place] % (Auto) 10.0 H (0.0-7.3) % Sodium 132 L (137-145) mmol/L BUN 5 L (7-17) mg/dL Alkaline Phosphatase 242 H (35-129) units/L Lactate Dehydrogenase 310 H (91-180) units/L Total Protein 5.8 L D (6.3-8.2) g/dL Albumin 3.1 L (3.9-5) g/dL
--- NOTE | 2019-12-02 11:40 | Discharge Summary ---
Providers - Providers Date of Admission: 11/29/19 12:05 Date of discharge: 12/02/19 Attending physician: VIVIEN LINARES MD 12/01/19 01:38 Consult to Case Management [CONS] Routine Services Needed at Discharge: Trust Mail Clerk Notified:: LASHAWN Phone number called:: [phone] Was contact made?: No Time called:: 11:55 Comment:: + UDS (marijuana) Primary care physician: VIVIEN LINARES MD Hospitalization Reason for admission: active labor Delivery: Episiotomy: none Laceration: none Other procedures: none complications: none Discharge diagnosis: IUP at term delivered baby: male Condition at discharge: Good Disposition: DC-01 TO HOME OR SELFCARE Plan - Provider Discharge Summary Activity: routine, no sex for 6 weeks, no heavy lifting 4 weeks, no strenuous exercise Diet: routine Instructions: routine Additional instructions: [] Smoking cessation referral if applicable(refer to patient education folder for contact #) [] Refer to [facility] Booklet Call your doctor immediately for: * Fever > 100.5 * Heavy vaginal bleeding ( >1 pad per hour) * Severe persistent headache * Shortness of breath * Reddened, hot, painful area to leg or breast * Drainage or odor from incision. * Keep incision clean and dry at all times and follow doctor's instructions regarding bathing/showering - Follow up plan Follow up: VIVIEN LINARES MD [Primary Care Provider] - 6 Weeks
[2019-12-02] MEDS ORDERED: medroxyPROGESTERone ACETATE 150 MG/ML SYRINGE IM ONE (12:00)
[2019-12-02 12:34] VITALS: BP 132/78
== END 2019-12-02 13:50 | disposition home or self-care (01) | DRG 774 ==
LOC: TRG 11:15 → LD 11:16 → TRG 12:05 → LD 12:05 → OB 12-01 03:34
PROVIDERS: ADMIT Obstetrics & Gynecology; ATTEND Obstetrics & Gynecology
PROC: 10E0XZZ Delivery of Products of Conception, External Approach (ICD-10-PCS; principal; 2019-12-01)
PROC: 3E0R3BZ Introduction of Anesthetic Agent into Spinal Canal, Percutaneous Approach (ICD-10-PCS; 2019-12-01)
PROC: 00HU33Z Insertion of Infusion Device into Spinal Canal, Percutaneous Approach (ICD-10-PCS; 2019-12-01)
DX: O69.81X0 Labor and delivery complicated by cord around neck, without compression, not applicable or unspecified (principal); O98.52 Other viral diseases complicating childbirth; K21.9 Gastro-esophageal reflux disease without esophagitis; F17.200 Nicotine dependence, unspecified, uncomplicated; Z37.0 Single live birth; Z3A.37 37 weeks gestation of pregnancy; Z90.49 Acquired absence of other specified parts of digestive tract; Z82.49 Family history of ischemic heart disease and other diseases of the circulatory system; O99.334 Smoking (tobacco) complicating childbirth; O99.62 Diseases of the digestive system complicating childbirth; B00.89 Other herpesviral infection; Z20.828 Contact with and (suspected) exposure to other viral communicable diseases; O90.81 Anemia of the puerperium; D64.9 Anemia, unspecified
CPT/HCPCS: 36415; 80053; 80307; 81001; 83615; 84550; 85014; 85018; 85025; 85027; 86850; 86900; 86901; 87086; G0378; A6250; J0290; J0595; J0696; J2590; J3010; J3105; J3490; J7120; U0003-CS

== ENCOUNTER 2021-08-07 07:38 | Emergency (ER) | payer MEDICAID ==
[2021-08-07 08:20] VITALS: BP 152/91
[2021-08-07 09:00] LABS: Basophils % (Auto) 0.6 % (0.0-1.8); Eosinophils # (Auto) 0.1 K/mm3 (0.0-0.4); Eosinophils % (Auto) 1.4 % (0.0-4.3); Hematocrit 39.5 % (30.3-42.9); Lymphocytes # (Auto) 1.4 K/mm3 (1.2-5.4); Lymphocytes % (Auto) 36.2 % (13.4-35.0); Mean Corpuscular HGB Conc 33 % (30-34); Mean Corpuscular Volume 97 fl (79-97); Monocytes # (Auto) 0.4 K/mm3 (0.0-0.8); Monocytes % (Auto) 9.2 % (0.0-7.3); Platelet Count 180 K/mm3 (140-440); Red Blood Count 4.05 M/mm3 (3.65-5.03); Red Cell Distribution Width 12.7 % (13.2-15.2)
[2021-08-07 09:04] LABS: Bilirubin,Urine NEG (Negative); Blood,Urine NEG (Negative); Color,Urine Yellow (Yellow); Mucus,Urine 3+ /HPF; Protein,Urine <15 mg/dL mg/dL (Negative); Urobilinogen,Urine < 2.0 mg/dL (<2.0)
[2021-08-07 09:29] LABS: Alanine Aminotransferase 18 units/L (7-56); Albumin 4.6 g/dL (3.9-5); BUN/Creatinine Ratio 7; Blood Urea Nitrogen 7 mg/dL (7-17); Calcium 9.3 mg/dL (8.4-10.2); Hemolysis Index 4
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
== END 2021-08-07 10:35 | disposition home or self-care (01) ==
LOC: ED 07:38
DX: R19.7 Diarrhea, unspecified (principal); R11.10 Vomiting, unspecified
CPT/HCPCS: 36415; 80053; 81001; 85025; 99283